=== PATIENT | male | born 1995 | race American Indian/Alaskan Native ===

== ENCOUNTER 2020-04-22 10:14 | Emergency (ER) | payer SELFPAY ==
[2020-04-22 10:26] VITALS: BP 141/92
--- NOTE | 2020-04-22 10:47 | Event Note ---
ED Screening Note ED Screening Note: he states that he was in a refrigerator truck and fell onto the ground states he fell backwards at 9 AM states he landed on his back and then hit his head states that he has a headache which he described in triage as a 2/10 he denies any back pain he denies any LOC no vision changes no n/v no numbness or weakness no bowel or bladder incontinence no dizziness
--- NOTE | 2020-04-22 10:52 | Emergency Department Report ---
ED Head Trauma HPI - General Chief complaint: Head Injury Stated complaint: HIT HEAD/FALL Time Seen by Provider: 04/22/20 10:39 Source: patient Mode of arrival: Ambulatory Limitations: No Limitations - History of Present Illness Initial comments: pt is a 24 yo male who states that he was in a refrigerator truck and fell onto the ground approximately 5 feet states he fell backwards at 9 AM states he landed on his back and then hit his head states that he has a headache which he described in triage as a 2/10 he denies any back pain he denies any LOC no vision changes no n/v no numbness or weakness no bowel or bladder incontinence no dizziness - Related Data Allergies/Adverse reactions: Allergies Allergy/AdvReac Type Severity Reaction Status Date / Time No Known Allergies Allergy Unverified 04/22/20 10:22 ED Review of Systems ROS: Stated complaint: HIT HEAD/FALL Other details as noted in HPI Comment: All other systems reviewed and negative ED Past Medical Hx - Past Medical History Previous Medical History?: No - Surgical History Past Surgical History?: No - Social History Smoking Status: Never Smoker Substance Use Type: None ED Physical Exam - General Limitations: No Limitations General appearance: alert, in no apparent distress - Head Head exam: Present: atraumatic, normocephalic, other (no skull bony ttp, no facial bony ttp, no scalp hematoma, no abrasion/no laceration) - Eye Eye exam: Present: normal appearance, PERRL, EOMI, other (no robles signs). Absent: periorbital swelling, periorbital tenderness - ENT ENT exam: Present: mucous membranes moist, TM's normal bilaterally, normal external ear exam, other (no hemotypanum) - Neck Neck exam: Present: normal inspection, full ROM. Absent: tenderness - Respiratory Respiratory exam: Present: normal lung sounds bilaterally. Absent: respiratory distress, wheezes, rales, rhonchi, stridor, chest wall tenderness, accessory muscle use, decreased breath sounds, prolonged expiratory - Cardiovascular Cardiovascular Exam: Present: regular rate, normal rhythm, normal heart sounds. Absent: systolic murmur, diastolic murmur, rubs, gallop - Neurological Exam Neurological exam: Present: alert, oriented X3, CN II-XII intact, normal gait, other (normal finger to nose, normal heel to scwhab, 5/5 muscle strength in the BUE/BLE, sensation intact throughout, normal tandem walking, no focal neuro deficit). Absent: motor sensory deficit - Psychiatric Psychiatric exam: Present: normal affect, normal mood - Skin Skin exam: Present: warm, dry ED Course Vital Signs 04/22/20 10:25 Temperature 98.4 F Pulse Rate 81 Respiratory 20 Rate Blood Pressure 141/92 O2 Sat by Pulse 98 Oximetry - Medical Decision Making pt is a 24 yo male who states that he was in a refrigerator truck and fell onto the ground approximately 5 feet states he fell backwards at 9 AM states he landed on his back and then hit his head states that he has a headache which he described in triage as a 2/10 he denies any back pain he denies any LOC no vision changes no n/v no numbness or weakness no bowel or bladder incontinence no dizziness VSS on exam: no neuro deficits, no hemotypanum, no robles signs, no skull bony ttp, no facial bony ttp, no scalp hematoma, no abrasion/no laceration. Andrews CT head rule is 0, imaging of the head is not recommended. discussed in detail with patient precautions and red flag warning signs. advised pt may take tylenol as needed for discomfort. may use ice pack, heating pad, rest, epsom salt bath. follow up with a primary care doctor in the next 2 days. return to the emergency room for any new or worsening symptoms including but not limited to loss of consciousness, vomiting, dizziness, numbness, weakness, inability to control bowel or bladder function, etc. medical screening examination performed and there is no threat to life or limb at this time - Differential Diagnosis concussion, scalp hematoma, minor head injury, JUNIOR, ICH, SDH, epidural hemat - NEXUS Criteria Focal neurological deficit present: No Midline spinal tenderness present: No Altered level of consciousness: No Intoxication present: No Distracting injury present: No NEXUS results: C-Spine can be cleared clinically by these results. Imaging is not required. Critical care attestation.: If time is entered above; I have spent that time in minutes in the direct care of this critically ill patient, excluding procedure time. ED Disposition Clinical Impression: Minor head injury Qualifiers: Encounter type: initial encounter Qualified Code(s): S09.90XA - Unspecified injury of head, initial encounter Disposition: MED SCREENING EXAM-LEFT Is pt being admited?: No Does the pt Need Aspirin: No Condition: Stable Instructions: Minor Head Injury (ED) Additional Instructions: may take tylenol as needed for discomfort. may use ice pack, heating pad, rest, epsom salt bath. follow up with a primary care doctor in the next 2 days. return to the emergency room for any new or worsening symptoms including but not limited to loss of consciousness, vomiting, dizziness, numbness, weakness, inability to control bowel or bladder function, etc. Referrals: KAYLEE GALEANO MD [Staff Physician] - 2-3 Days [facility] [Provider Group] - 2-3 Days [facility] [Outside] - 2-3 Days Time of Disposition: 10:49 Print Language: FAROESE
== END 2020-04-22 10:55 | disposition left against medical advice (07) ==
LOC: ED 10:14
DX: R51 Headache (principal); Z53.21 Procedure and treatment not carried out due to patient leaving prior to being seen by health care provider
CPT/HCPCS: 99281

== ENCOUNTER 2020-05-06 03:31 | Emergency (ER) | payer OTHER ==
[2020-05-06] MEDS ORDERED: METOCLOPRAMIDE 10 MG TAB PO ONE (05:06)
[2020-05-06] MEDS ORDERED: ACETAMINOPHEN 325 MG TAB PO ONE (05:06)
[2020-05-06] MEDS ORDERED: diphenhydrAMINE 25 MG CAP PO ONE (05:06)
--- NOTE | 2020-05-06 05:13 | Cat Scan Report ---
CT HEAD WITHOUT CONTRAST INDICATION / CLINICAL INFORMATION: Pt complains of a Headache with nausea and vomiting 3 days.. TECHNIQUE: All CT scans at this location are performed using CT dose reduction for ALARA by means of automated e xposure control. COMPARISON: None available. FINDINGS: HEMORRHAGE: None. EXTRA-AXIAL SPACES: Normal in size and morphology for the patient's age. VENTRICULAR SYSTEM: Normal in size and morphology for the patient's age. CEREBRAL PARENCHYMA: No significant abnormality. No acute territorial infarct. MIDLINE SHIFT OR HERNIATION: None. CEREBELLUM / BRAINSTEM: No significant abnormality. ORBITS: Normal as visualized. SOFT TISSUES of HEAD: No significant abnormality. CALVARIUM: No significant abnormality. PARANASAL SINUSES / MASTOID AIR CELLS: Normal as visualized. ADDITIONAL FINDINGS: None. IMPRESSION: 1. No acute intracranial abnormality. Signer Name: Yusef Guevara MD Signed: 05/06/2020 5:09 AM Workstation Name: [id number]
[2020-05-06] MEDS ORDERED: SODIUM CHLORIDE 0.9% 1000 ML 1,000 ML IV ONE (05:45)
[2020-05-06] MEDS ORDERED: METOCLOPRAMIDE 10 MG/2 ML INJ IV ONE (05:45)
[2020-05-06] MEDS ORDERED: SUMAtriptan SUCCINATE 6 MG/0.5 ML INJ SUB-Q ONE (05:45)
[2020-05-06] MEDS ORDERED: diphenhydrAMINE 50 MG/ML VIAL IV ONE (05:45)
--- NOTE | 2020-05-06 07:42 | Emergency Department Report ---
ED Headache HPI - General Chief Complaint: Head Injury Stated Complaint: HEAD INJURY,VOMITING Time Seen by Provider: 05/06/20 05:02 - History of Present Illness Initial Comments: pt is a 24 yo male who presents to the ED with c/o a headache that has been ongoing for two weeks. he states that the headache got acutely worse yesterday. he states yesterday was his first day back to work which he feels like exacerbated the headache. two weeks ago, the pt fell off of a truck and hit his head. he did not have LOC, vision changes, or n/v at that time. he states yesterday he began to have n/v. he states he has been seeing a PCP and was prescribed fiorcet but states that it did not help relieve the headache. he denies any vision changes, photophobia, numbness, weakness, bowel or bladder incontinence, speech disturbance, gait disturbance. he denies any other PMHx. no allergies to meds. Allergies/Adverse Reactions: Allergies No Known Allergies Allergy (Unverified 04/22/20 10:22) Home Medications: Ambulatory Orders Ondansetron [Zofran Odt] 4 mg PO Q8HR PRN #10 tab.rapdis 05/06/20 SUMAtriptan SUCCINATE [Imitrex] 25 mg PO Q3HR PRN #20 tablet 05/06/20 ED Review of Systems ROS: Stated complaint: HEAD INJURY,VOMITING Other details as noted in HPI Comment: All other systems reviewed and negative ED Past Medical Hx - Past Medical History Previous Medical History?: No - Surgical History Past Surgical History?: No - Social History Smoking Status: Never Smoker Substance Use Type: None - Medications Home Medications: Home Medications Medication Instructions Recorded Confirmed Last Taken Type Ondansetron [Zofran Odt] 4 mg PO Q8HR PRN #10 tab.rapdis 05/06/20 Unknown Rx SUMAtriptan SUCCINATE [Imitrex] 25 mg PO Q3HR PRN #20 tablet 05/06/20 Unknown Rx ED Physical Exam - General Limitations: No Limitations General appearance: alert, in no apparent distress - Head Head exam: Present: atraumatic, normocephalic - Eye Eye exam: Present: normal appearance, PERRL, EOMI. Absent: periorbital swelling, periorbital tenderness Pupils: Present: normal accommodation - ENT ENT exam: Present: mucous membranes moist - Respiratory Respiratory exam: Present: normal lung sounds bilaterally. Absent: respiratory distress, wheezes, rales, rhonchi, stridor, chest wall tenderness, accessory muscle use, decreased breath sounds, prolonged expiratory - Cardiovascular Cardiovascular Exam: Present: regular rate, normal rhythm, normal heart sounds. Absent: systolic murmur, diastolic murmur, rubs, gallop - Neurological Exam Neurological exam: Present: alert, oriented X3, CN II-XII intact, normal gait. Absent: motor sensory deficit - Psychiatric Psychiatric exam: Present: normal affect, normal mood - Skin Skin exam: Present: warm, dry, intact ED Course Vital Signs 05/06/20 05/06/20 03:34 09:17 Temperature 98.0 F Pulse Rate 98 H Respiratory 18 Rate Blood Pressure 140/90 125/86 O2 Sat by Pulse 100 Oximetry ED Medical Decision Making - Radiology Data Radiology results: report reviewed CT HEAD WITHOUT CONTRAST INDICATION / CLINICAL INFORMATION: Pt complains of a Headache with nausea and vomiting 3 days.. TECHNIQUE: All CT scans at this location are performed using CT dose reduction for ALARA by means of automated exposure control. COMPARISON: None available. FINDINGS: HEMORRHAGE: None. EXTRA-AXIAL SPACES: Normal in size and morphology for the patient's age. VENTRICULAR SYSTEM: Normal in size and morphology for the patient's age. CEREBRAL PARENCHYMA: No significant abnormality. No acute territorial infarct. MIDLINE SHIFT OR HERNIATION: None. CEREBELLUM / BRAINSTEM: No significant abnormality. ORBITS: Normal as visualized. SOFT TISSUES of HEAD: No significant abnormality. CALVARIUM: No significant abnormality. PARANASAL SINUSES / MASTOID AIR CELLS: Normal as visualized. ADDITIONAL FINDINGS: None. IMPRESSION: 1. No acute intracranial abnormality. Signer Name: Yusef Guevara MD Signed: 05/06/2020 5:09 AM Workstation Name: [id number] Transcribed By: TL Dictated By: Yusef Guevara MD Electronically Authenticated By: Yusef Guevara MD Signed Date/Time: 05/06/20508 DD/ 6 TD/TT: - Medical Decision Making pt is a 24 yo male who presents to the ED with c/o a headache that has been ongoing for two weeks. he states that the headache got acutely worse yesterday. he states yesterday was his first day back to work which he feels like exacerbated the headache. two weeks ago, the pt fell off of a truck and hit his head. he did not have LOC, vision changes, or n/v at that time. he states yesterday he began to have n/v. he states he has been seeing a PCP and was prescribed fiorcet but states that it did not help relieve the headache. he denies any vision changes, photophobia, numbness, weakness, bowel or bladder incontinence, speech disturbance, gait disturbance. he denies any other PMHx. no allergies to meds. vss. No neurological deficits on physical exam. CT head without contrast 1. No acute intracranial abnormality. Patient initially given p.o. medications but was unable to keep the medication down and began vomiting. Patient given 1 L IV fluids, IV Reglan, IV Benadryl, subcu Imitrex. After medications patient states that his headache completely resolved and he was feeling much better. It appears patient is most likely having postconcussion headaches. Patient given prescription for Imitrex and Zofran. Advised patient please take medication as prescribed. please follow up with neurologist. return to the emergency room for any new or worsening symptoms - Differential Diagnosis post concussion syndrome, ICH, SDH, migraines, tension/cluster JUNIOR Critical care attestation.: If time is entered above; I have spent that time in minutes in the direct care of this critically ill patient, excluding procedure time. ED Disposition Clinical Impression: Post concussion syndrome Disposition: DC- TO HOME OR SELFCARE Is pt being admited?: No Does the pt Need Aspirin: No Condition: Stable Instructions: Post Concussion Syndrome (ED) Additional Instructions: please take medication as prescribed. please follow up with neurologist. return to the emergency room for any new or worsening symptoms Prescriptions: SUMAtriptan SUCCINATE [Imitrex] 25 mg PO Q3HR PRN #20 tablet PRN Reason: headache Ondansetron [Zofran Odt] 4 mg PO Q8HR PRN #10 tab.rapdis PRN Reason: Nausea And Vomiting Referrals: MADI VAUGHAN MD [Referring] - 2-3 Days ANGELICA ERAZO MD [Staff Physician] - 2-3 Days Time of Disposition: 07:40 Print Language: GUYANESE
[2020-05-06 11:53] VITALS: BP 125/86
== END 2020-05-06 08:30 | disposition home or self-care (01) ==
LOC: ED 03:31
DX: F07.81 Postconcussional syndrome (principal); R11.10 Vomiting, unspecified; Z79.899 Other long term (current) drug therapy
CPT/HCPCS: 70450; 96361; 96372; 96374; 96375; 99283; J1200; J2765; J7030; J3030

== ENCOUNTER 2020-07-15 22:45 | Emergency (ER) | payer SELFPAY ==
[2020-07-16 02:55] LABS: Bilirubin,Urine NEG (Negative); Blood,Urine SM (Negative); Color,Urine Straw (Yellow); Protein,Urine <15 mg/dL mg/dL (Negative); Urobilinogen,Urine < 2.0 mg/dL (<2.0); WBC,Urine < 1.0 /HPF (0.0-6.0)
[2020-07-16] MEDS ORDERED: SODIUM CHLORIDE 0.9% 1000 ML 1,000 ML IV ONE (03:03)
[2020-07-16] MEDS ORDERED: diphenhydrAMINE 50 MG/ML VIAL IV ONE (03:03)
[2020-07-16] MEDS ORDERED: ONDANSETRON 4 MG/2 ML INJ IV ONE (03:04)
[2020-07-16] MEDS ORDERED: HYDROmorphone 1 MG/1 ML INJ IV ONE (03:04)
--- NOTE | 2020-07-16 03:20 | Emergency Department Report ---
ED Psych HPI - General Chief Complaint: Psych Stated Complaint: HEADACHE Time Seen by Provider: 07/16/20 03:02 Source: family Mode of arrival: Ambulatory Limitations: No Limitations - History of Present Illness Initial Comments: Patient is a 24-year-old male who presents emergency room with complaints of migraine symptoms. Patient states that his migraines symptoms include nausea, vomiting, photosensitivity, headache. Patient states it is a global headache. Patient states the pain is worse with sound and light. Patient states pain started 5 PM yesterday. Patient states the migraine is worsening. Patient states his been taking his migraine medications not working. Patient states she took Imitrex and nothing happened. Patient denies fever chills. Patient denies blurry vision. Patient denies neck stiffness. Patient states he had a con cussion 2 months ago. Patient states he sees a neurologist. Patient states he was recently started on amitriptyline for his headaches. Patient states he has taken Imitrex as well. Patient states he is been having audio and visual hallucinations for 1 month. Patient states he is having conversation with his voices. Patient denies suicidal homicidal ideation. Patient states he is depressed. Patient states that his headaches are making the symptoms worse. Patient states he is scared of the amount of hallucinations he is having. MD Complaint: feels depressed, other -: Sudden Associated Psychiatric Symptoms: racing thoughts, auditory hallucinations, visual hallucinations, delusions History of same: Yes Quality: constant Improves With: none Worsens With: none Context: significant life stressor Associated Symptoms: headache, nausea, vomiting, insomnia. denies: confusion, shortness of breath, syncope Treatments Prior to Arrival: none - Related Data Previous Rx's Medication Instructions Recorded Last Taken Type Ondansetron [Zofran Odt] 4 mg PO Q8HR PRN #10 tab.rapdis 05/06/20 Unknown Rx SUMAtriptan SUCCINATE [Imitrex] 25 mg PO Q3HR PRN #20 tablet 05/06/20 Unknown Rx Allergies Allergy/AdvReac Type Severity Reaction Status Date / Time No Known Allergies Allergy Unverified 04/22/20 10:22 ED Review of Systems ROS: Stated complaint: HEADACHE Other details as noted in HPI Constitutional: denies: chills, fever Eyes: denies: eye pain, eye discharge, vision change ENT: denies: ear pain, throat pain Respiratory: denies: cough, shortness of breath, wheezing Cardiovascular: denies: chest pain, palpitations Endocrine: no symptoms reported Gastrointestinal: denies: abdominal pain, nausea, diarrhea Genitourinary: denies: urgency, dysuria Musculoskeletal: denies: back pain, joint swelling, arthralgia Skin: denies: rash, lesions Neurological: as per HPI, headache. denies: weakness, paresthesias Psychiatric: as per HPI, depression, auditory hallucinations, visual hallucinations. denies: anxiety, homicidal thoughts, suicidal thoughts Hematological/Lymphatic: denies: easy bleeding, easy bruising ED Past Medical Hx - Past Medical History Previous Medical History?: Yes Hx Headaches / Migraines: Yes - Surgical History Past Surgical History?: No - Family History Family history: no significant - Social History Smoking Status: Never Smoker Substance Use Type: None - Medications Home Medications: Home Medications Medication Instructions Recorded Confirmed Last Taken Type Ondansetron [Zofran Odt] 4 mg PO Q8HR PRN #10 tab.rapdis 05/06/20 Unknown Rx SUMAtriptan SUCCINATE [Imitrex] 25 mg PO Q3HR PRN #20 tablet 05/06/20 Unknown Rx ED Physical Exam - General Limitations: No Limitations General appearance: alert, in no apparent distress - Head Head exam: Present: atraumatic, normocephalic - Eye Eye exam: Present: normal appearance, PERRL Pupils: Present: normal accommodation - ENT ENT exam: Present: mucous membranes moist - Neck Neck exam: Present: normal inspection - Respiratory Respiratory exam: Present: normal lung sounds bilaterally. Absent: respiratory distress - Cardiovascular Cardiovascular Exam: Present: regular rate, normal rhythm. Absent: systolic murmur, diastolic murmur, rubs, gallop - GI/Abdominal GI/Abdominal exam: Present: soft, normal bowel sounds - Rectal Rectal exam: Present: deferred - Extremities Exam Extremities exam: Present: normal inspection - Back Exam Back exam: Present: normal inspection - Neurological Exam Neurological exam: Present: alert, oriented X3, CN II-XII intact, normal gait. Absent: abnormal gait, motor sensory deficit - Psychiatric Psychiatric exam: Present: depressed, flat affect - Expanded Psychiatric Exam Expanded Focused psych exam: Present: pressured speech, delusional, restlessness - Skin Skin exam: Present: warm, dry, intact, normal color. Absent: rash ED Course Vital Signs 07/15/20 07/16/20 07/16/20 23:06 03:25 03:30 Temperature 98 F 98.1 F Pulse Rate 108 H 114 H Respiratory 18 18 18 Rate Blood Pressure 179/108 Blood Pressure 126/77 [Left] O2 Sat by Pulse 98 96 Oximetry - Reevaluation(s) Reevaluation #1: Patient states his headache is resolved. Patient denies nausea at this time. Patient denies vomiting at this time. I discussed all results and clinical findings with patient. I discussed plan of care with patient. Patient agrees with plan of care. Patient is medically cleared. Patient will remain in the ER as an ER hold. Patient's final disposition will come from our psych and mental health team. 07/16/20 04:54 ED Medical Decision Making - Lab Data Result diagrams: 07/16/20 03:19 07/16/20 03:19 - Radiology Data Radiology results: report reviewed CT HEAD WITHOUT CONTRAST INDICATION / CLINICAL INFORMATION: Patient complains of a severe headache.. TECHNIQUE: All CT scans at this location are performed using CT dose reduction for ALARA by means of automated exposure control. COMPARISON: Head CT dated 05/06/2020 FINDINGS: HEMORRHAGE: No evidence of intracranial hemorrhage or extra-axial fluid collection. EXTRA-AXIAL SPACES: Cortical sulci, sylvian fissures and basilar cisterns have an unremarkable appearance. VENTRICULAR SYSTEM: The ventricular system is of normal size and configuration. CEREBRAL PARENCHYMA: No areas of abnormal brain parenchymal attenuation are identified. There is no indication of recent infarction. MIDLINE SHIFT OR HERNIATION: There is no mass effect. CEREBELLUM / BRAINSTEM: Brainstem and cerebellum have an unremarkable ap pearance. MIDLINE STRUCTURES:No abnormalities of the pituitary gland or pineal region are identified. INTRACRANIAL VESSELS:No abnormalities are identified on this noncontrast head CT. ORBITS: visualized portions of the orbits have an unremarkable appearance. SOFT TISSUES of HEAD: No significant abnormality. CALVARIUM: Evaluation of bone windows reveals no abnormalities. PARANASAL SINUSES / MASTOID AIR CELLS: Paranasal sinuses are free from inflammatory mucosal disease. Mastoid air cells are normally pneumatized. IMPRESSION: 1. Normal head CT without contrast. No interval change since prior examination 05/06/2020 - Medical Decision Making Patient is a 24-year-old male that presents emergency room with complaints of a worsening migraine and hallucinations. Patient's hallucinations are worsening. Patient's migraines are intractable. Patient given a migraine cocktail to include Dilaudid, Zofran and Benadryl. Patient responded well. Patient's h eadache free. Patient placed on a ER hold due to his hallucinations. Patient will see our mental health team in the morning. Patient is medically clear. Patient had labs and are essentially unremarkable except for abnormal LFTs. Patient's final disposition will come from our mental health team and psychiatry team. - Differential Diagnosis Headache, migraine, severe headache, hallucinations. Critical care attestation.: If time is entered above; I have spent that time in minutes in the direct care of this critically ill patient, excluding procedure time. ED Disposition Clinical Impression: Hallucination, Severe headache Migraine Qualifiers: Migraine type: with aura Status migrainosus presence: with status migrainosus Intractability: intractable Qualified Code(s): G43.111 - Migraine with aura, intractable, with status migrainosus Nausea & vomiting Qualifiers: Vomiting type: unspecified Vomiting Intractability: non-intractable Qualified Code(s): R11.2 - Nausea with vomiting, unspecified Disposition: DC-01 TO HOME OR SELFCARE Is pt being admited?: No Does the pt Need Aspirin: No Condition: Stable Additional Instructions: Patient to follow-up with primary care in 2 to 3 days. Patient to follow-up with neurologist in 2 to 3 days. Patient to rest. Patient to increase water. Patient to take Tylenol or ibuprofen as needed for pain. Patient to return to the ER if condition worsens, changes or new symptoms arise. Referrals: PRIMARY CARE, [Primary Care Provider] - 2-3 Days Time of Disposition: 04:57
[2020-07-16 03:50] LABS: Basophils # (Auto) 0.1 K/mm3 (0.0-0.1); Basophils % (Auto) 1.2 % (0.0-1.8); Eosinophils # (Auto) 0.1 K/mm3 (0.0-0.4); Hematocrit 37.8 % (35.5-45.6); Hemoglobin 12.5 gm/dl (11.8-15.2); Lymphocytes # (Auto) 2.1 K/mm3 (1.2-5.4); Lymphocytes % (Auto) 32.9 % (13.4-35.0); Mean Corpuscular HGB Conc 33 % (32-34); Mean Corpuscular Volume 71 fl (84-94); Monocytes # (Auto) 0.6 K/mm3 (0.0-0.8); Monocytes % (Auto) 9.7 % (0.0-7.3); Platelet Count 203 K/mm3 (140-440); Red Blood Count 5.36 M/mm3 (3.65-5.03); Red Cell Distribution Width 14.9 % (13.2-15.2)
[2020-07-16 03:59] LABS: Alanine Aminotransferase 82 units/L (7-56); Albumin 3.8 g/dL (3.9-5); Blood Urea Nitrogen 8 mg/dL (9-20); Calcium 7.9 mg/dL (8.4-10.2); Hemolysis Index 78
[2020-07-16 04:02] LABS: BUN/Creatinine Ratio 11
--- NOTE | 2020-07-16 04:15 | Cat Scan Report ---
CT HEAD WITHOUT CONTRAST INDICATION / CLINICAL INFORMATION: Patient complains of a severe headache.. TECHNIQUE: All CT scans at this location are performed using CT dose reduction for ALARA by means of automated e xposure control. COMPARISON: Head CT dated 05/06/2020 FINDINGS: HEMORRHAGE: No evidence of intracranial hemorrhage or extra-axial fluid collection. EXTRA-AXIAL SPACES: Cortical sulci, sylvian fissures and basilar cisterns have an unremarkable appear ance. VENTRICULAR SYSTEM: The ventricular system is of normal size and configuration. CEREBRAL PARENCHYMA: No areas of abnormal brain parenchymal attenuation are identified. There is no i ndication of recent infarction. MIDLINE SHIFT OR HERNIATION: There is no mass effect. CEREBELLUM / BRAINSTEM: Brainstem and cerebellum have an unremarkable appearance. MIDLINE STRUCTURES:No abnormalities of the pituitary gland or pineal region are identified. INTRACRANIAL VESSELS:No abnormalities are identified on this noncontrast head CT. ORBITS: visualized portions of the orbits have an unremarkable appearance. SOFT TISSUES of HEAD: No significant abnormality. CALVARIUM: Evaluation of bone windows reveals no abnormalities. PARANASAL SINUSES / MASTOID AIR CELLS: Paranasal sinuses are free from inflammatory mucosal disease. Mastoid air cells are normally pneumatized. IMPRESSION: 1. Normal head CT without contrast. No interval change since prior examination 05/06/2020 Signer Name: Abe Martel MD Signed: 07/16/2020 4:11 AM Workstation Name: [id number]
[2020-07-16 06:56] LABS: Amphetamine Screen,Urine Negative; Benzodiazepines Screen,Urine Negative; Cannabinoid Screen,Urine Negative; Cocaine Screen,Urine Negative; Methadone Screen,Urine Negative; Opiate Screen,Urine Negative
[2020-07-16] MEDS ORDERED: BUTALB/ACETAMINOPHEN/CAFFEINE TAB PO ONE (15:57)
--- NOTE | 2020-07-17 11:38 | Consultation ---
History of Present Illness - Reason for Consult Consult date: 07/17/20 Reason for consult: psychosis - History of Present Psychiatric Illness Rom Harris is a 24y/o male patient who states he presented to the ER for a "terrible headache and hallucinations that won't go away." During my interview with the patient he is lying in bed, awake. The patient is a/o x 3. He is calm and cooperative, but slightly paranoid. He verbalized feeling "depressed." The patient says that he's been "hearing and seeing things that sound and look like people." He says, "they are inanimate objects that become people." The patient then points at the smoke detector. He says, "I thought the smoke detector was a person and I started talking to it until I realized what it was." The patient denies any psych history prior to this. He also denies any SI/HI or any past attempt of suicide. The patient denies any past psychiatric medications. He says "this all started about 2 months ago when I had my head injury." The patient says he's "slept better since being in the hospital." He says he was "fearful outside of the hospital." When asking the patient why was he afraid, he states, "the hallucinations." The patient denies any illicit drug use, alcohol or nicotine. PAST PSYCHIATRIC HISTORY Diagnoses: Denies Suicide attempts or Self-harm behavior: Denies Prior psychiatric hospitalizations: Denies Substance Abuse history: Denies Previous psychiatric medications tried: Denies Outpatient treatment: Denies PAST MEDICAL HISTORY: None reported Family Psychiatric History: None reported SOCIAL HISTORY Marital Status: Single Living Arrangements: Family Employment Status: Unemployed Access to guns/weapons: Denies Education: High school grad History of Abuse: Denies Legal History: Denies REVIEW OF SYSTEMS Constitutional: Negative for weight loss ENT: Negative for stridor Respiratory: Negative for cough or hemoptysis All other systems reviewed and are negative MENTAL STATUS EXAMINATION General Appearance: Dressed appropriately Behavior: calm and cooperative Mood: "depressed" Affect and affective range: Congruent with stated mood Speech: Normal volume, Regular rate and rhythm Thought Process: Goal directed Thought Content: Suicidal Ideation: Denies Homicidal Ideation: Denies Hallucinations: A/V Delusions: Yes, Paranoia Insight and Judgment: Limited Memory/Cognition: Normal Attention: Normal Assessment Major Depressive Disorder, Severe w/Psychotic Features TREATMENT PLAN Start Trazodone 50mg po daily Start Olanzapine 2.5mg po daily Start Vistaril 25mg po q6h prn anxiety Risks, benefits and alternatives of medications discussed with the patient, questions answered and consent obtained from patient. PSYCHOTHERAPY: Supportive psychotherapy provided MEDICAL: Per primary team DELIRIUM PRECAUTIONS: Please re-orient patient frequently, keep lights on during the day, and minimize benzodiazepines and opiates as these medications could worsen patient's confusion. 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 Please contact with any questions and/or concerns. Medications and Allergies Allergies Allergy/AdvReac Type Severity Reaction Status Date / Time No Known Allergies Allergy Unverified 04/22/20 10:22 Home Medications Medication Instructions Recorded Confirmed Last Taken Type Ondansetron [Zofran Odt] 4 mg PO Q8HR PRN #10 tab.rapdis 05/06/20 Unknown Rx SUMAtriptan SUCCINATE [Imitrex] 25 mg PO Q3HR PRN #20 tablet 05/06/20 Unknown Rx Mental Status Exam - Vital signs Last Vital Signs Temp 98.0 F 07/17/20 08:14 Pulse 90 07/17/20 08:14 Resp 20 07/17/20 08:14 BP 116/74 07/17/20 08:14 Pulse Ox 97 07/17/20 08:14 Results Result Diagrams: 07/16/20 03:19 07/16/20 03:19 All other labs normal.
[2020-07-17] MEDS ORDERED: hydrOXYzine PAMOATE 25 MG CAP PO PRN (11:43)
[2020-07-17 14:44] LABS: Alanine Aminotransferase 117 units/L (7-56); Albumin 4.4 g/dL (3.9-5); BUN/Creatinine Ratio 16; Blood Urea Nitrogen 14 mg/dL (9-20); Calcium 9.2 mg/dL (8.4-10.2); Hemolysis Index 13
[2020-07-17 20:40] VITALS: BP 109/72
[2020-07-17] MEDS ORDERED: traZODone 50 MG TAB PO SCH (22:00)
== END 2020-07-17 23:00 | disposition home or self-care (01) ==
LOC: EEVIPCON 22:45 → ED 22:45
DX: G43.111 Migraine with aura, intractable, with status migrainosus (principal)
CPT/HCPCS: 36415; 70450; 80053; 80307; 81001; 85025; 87086; 96361; 96374; 96375; 99285; J1170; J1200; J2405; J7030; 80048; 80320; G0480; Q0177